=== PATIENT | male | born 1995 | race Caucasian/White ===

== ENCOUNTER → 2020-10-03 12:11 | Outpatient (CLI) | payer OTHER, SELFPAY ==
[2020-10-03 19:48] LABS: C-Reactive Protein Quant 1.4 mg/dL (<1.0)
[2020-10-03 19:56] LABS: Erythrocyte Sedimentation Rate 3 MM/HR (0-15); Procalcitonin 0.06 ng/mL (<0.5)
[2020-10-03 20:16] LABS: Add Manual Diff / Slide Review NO; Basophils Absolute Auto 0 /uL (0-100); Basophils Percent Auto 0.4 % (0-2); Eosinophils Absolute Auto 400 /uL (0-450); Hematocrit 42.9 % (41-53); Hemoglobin 14.9 g/dL (13.5-17.5); Lymphocytes Absolute Auto 2000 /uL (1100-4500); Lymphocytes Percent Auto 24.2 % (25-40); Mean Corpuscular HGB Conc 34.6 % (30-36); Mean Corpuscular Hemoglobin 30.2 PG (26-34); Mean Corpuscular Volume 87.3 fL (80-100); Monocytes Absolute Auto 500 /uL (0-900); Monocytes Percent Auto 6.1 % (3-14); Neutrophils Absolute Auto 5200 /uL (1500-7000); Neutrophils Percent Auto 64.3 % (50-75); Platelet Count 218 X10^3/uL (150-400); Red Blood Cell Count 4.92 X10^6/uL (4.5-5.9); Red Cell Distribution Width 13.4 % (11.6-14.8); White Blood Cell Count 8.1 X10^3/uL (4.5-11.0)
== END ==
PROVIDERS: PCP Family Medicine; Visit Provider Family Medicine
DX: M25.462 Effusion, left knee (principal); M25.562 Pain in left knee
CPT/HCPCS: 84145; 85025; 85651; 86140